=== PATIENT | female | born 1955 | race Two or more races ===

== ENCOUNTER 2023-02-05 21:11 | Emergency (ER) | payer MEDICARE, MEDICAID ==
[~2023-02-05] VITALS: Ht 139.7 cm; Wt 70.3 kg
[2023-02-06] MEDS ORDERED: HYDROcodone-ACET 10/325MG TAB PO ONE ×2 (00:30→00:45)
[2023-02-06] MEDS ORDERED: HYDR-4902 PO (01:01)
[2023-02-06 02:03] VITALS: BP 162/87
== END 2023-02-06 02:05 | disposition home or self-care (01) ==
LOC: ER 21:16
DX: S02.2XXA Fracture of nasal bones, initial encounter for closed fracture (principal); S00.83XA Contusion of other part of head, initial encounter; E66.01 Morbid (severe) obesity due to excess calories; Z68.36 Body mass index [BMI] 36.0-36.9, adult; Y04.2XXA Assault by strike against or bumped into by another person, initial encounter; Y93.89 Activity, other specified; Y92.89 Other specified places as the place of occurrence of the external cause; Y99.8 Other external cause status
CPT/HCPCS: 70450; 70486; 71045; 72125

== ENCOUNTER 2024-08-04 07:38 | Day surgery (SDC) | payer MEDICARE, MEDICAID ==
[~2024-08-04] VITALS: Ht 139.7 cm; Wt 65.3 kg
[~2024-08-04 07:38] MED LIST: CHOL200064 PO; HYDROmorphone HCL 2 MG/ML VL/or syr IV PRN; ICOS1CAP OR; KETOROLAC TROMETH 30 MG/ML 1ML VIAL IV ONE; LORA-1121 PO; METOCLOPRAMIDE HCL 5MG/ml INJ 2ml VIAL IV ONE; MORPHINE SULFATE INJ 2 MG/ml SYRG IV PRN; OMEP-448 PO; OXYB5TAB14 PO; PHEN-1325 PO; SIMV10TA20 PO; TOLT2CAP PO; VENL150T34 PO
[2024-08-04] MEDS ORDERED: ONDANSETRON HCL 4 MG/2 ML VIAL ONE (07:47)
[2024-08-04] MEDS ORDERED: LIDOCAINE 1% INJ PF 5ML AMP ONE (07:47)
[2024-08-04] MEDS ORDERED: fentaNYL CITRATE 100 MCG/2 ML VL ONE (07:47)
[2024-08-04] MEDS ORDERED: PROPOFOL 10 MG/ML 20 ML IV ONE (07:47)
[2024-08-04] MEDS ORDERED: SODIUM CHLORIDE LOCK 10 ML ONE (07:47)
[2024-08-04] MEDS ORDERED: KETAMINE 50mg/ML 10ml Vial 10 ML ONE (07:47)
[2024-08-04] MEDS ORDERED: MIDAZOLAM HCL 2MG/2ML 2ml VIAL (1mg/ml) ONE (07:47)
[2024-08-04] MEDS: LIDOCAINE VISCOUS 2% 15ML UD ONE (08:25)
--- NOTE | 2024-08-04 08:38 | DVHHP2 ---
GI H&P Pre-Op Assessment Date: 08/04/24 Chief complaint: Epigastric pain HPI: per clinic note Past medical history: per clinic note Past surgical history: per clinic note Family history: per clinic note Physical exam: General: NAD, AAOX3 HEENT: PERRL, no scleral icterus, normal hearing, gums without lesions or b leeding, oropharynx clear without erythema or exudate. Neck: Supple without enlargement of the thyroid, or lymphadenopathy. Chest: Normal size and shape, no tenderness, lung lazo clear to auscultation and percussion, nonlabored breathing. Heart: RRR, no murmur Abdomen: non-distended, no tenderness to palpation, +BS, no hepatosplenomegaly Extremities: no edema Neurological: CN II-XII intact, sensation intact in all extremities, 5+ strength in all extremities Skin: No rashes, No jaundice Assessment: -Epigastric pain Plan: - EGD - Risks (bleeding, infection, perforation, reaction to sedation medications and cardiopulmonary arrest) and benefit of the procedure were explained to patient. Patient agrees to undergo the procedure. ERIC LONG MD Aug 04, 2024 08:38
[2024-08-04 08:39] VITALS: RESP 9; TEMP 97.3; O2SAT 97
--- NOTE | 2024-08-04 08:39 | DVHOP2 ---
Operative Report DATE OF OPERATION: 08/04/24 PROCEDURE: Upper Endoscopy. PREOPERATIVE INDICATION: The patient is a 68 -year-old female undergoing endoscopy for epigastric pain. POSTOPERATIVE DIAGNOSES: 1. Residual food in the stomach PROCEDURE PERFORMED BY: Miah Lima SCOPE: Olympus videoendoscope. ASA CLASS: 2 PREOPERATIVE MEDICATIONS: MAC with Dr Leary PROCEDURE IN DETAIL: After obtaining an informed consent, the patient was placed on left lateral decubitus position. The patient was then sedated with the above medications. A bite block was placed between her teeth. The en doscope was then passed through the oropharynx, into the esophagus, and through the stomach and pylorus up to the second and third part of the duodenum. The duodenal was normal appearance. There was a lot of residual food in the stomach. The GE junction was normal in appearance at 30 cm. The esophagus was normal in appearance. The endoscope was then withdrawn. The patient tolerated the procedure well without difficulty. COMPLICATIONS : None SPECIMENS: None DISPOSITION: D/C to home PLAN: 1. Patient will be instructed on low residual diet. Patient should eat small meals. MIAH LIMA MD Aug 04, 2024 08:39
--- NOTE | 2024-08-04 08:40 | DVHDS2 ---
Physician Discharge Progress N Final Diagnosis: Gastroparesis Operations or Procedures: Operations or Procedures EGD Condition on Discharge: Good Disposition: Home Discharge Instructions: Diet: Regular Activity: No Restrictions, As Tolerated Medications: Resume previous home medications Follow Up Care: Discharge Statement: "Patient was advised to return to the ER or call 911 if any headaches, d izziness, shortness of breath, chest pain, abdominal pain, bleeding, fevers, or worsening of medical condition. Patient was counseled about treatment plan, medications, possible side effects, patientverbalized understanding. All questions were answered to the best of my ability. This discharge took greater then 30 minutes in planning, reviewing documentation, counseling the patient, and discussing with other team members." ERIC LONG MD Aug 04, 2024 08:40
[2024-08-04 09:02] VITALS: BP 117/60; PULSE 86; RESP 12; O2SAT 97
== END 2024-08-04 09:19 | disposition home or self-care (01) ==
LOC: GI 07:38
PROVIDERS: ATTEND Internal Medicine Gastroenterology
DX: R10.13 Epigastric pain (principal); K31.89 Other diseases of stomach and duodenum; K44.9 Diaphragmatic hernia without obstruction or gangrene; K21.9 Gastro-esophageal reflux disease without esophagitis; E78.5 Hyperlipidemia, unspecified; F32.A Depression, unspecified; E66.9 Obesity, unspecified; Z68.33 Body mass index [BMI] 33.0-33.9, adult; Z98.890 Other specified postprocedural states; Z88.6 Allergy status to analgesic agent
CPT/HCPCS: 43235; J2250; J2405; J2704; J3010; J7030

== ENCOUNTER 2024-12-23 20:03 | Emergency (ER) | payer MEDICARE, MEDICAID ==
[~2024-12-23] VITALS: Ht 149.9 cm; Wt 65.6 kg
[~2024-12-23 20:03] MED LIST changes: -HYDROmorphone HCL 2 MG/ML VL/or syr IV PRN; -KETOROLAC TROMETH 30 MG/ML 1ML VIAL IV ONE; -METOCLOPRAMIDE HCL 5MG/ml INJ 2ml VIAL IV ONE; -MORPHINE SULFATE INJ 2 MG/ml SYRG IV PRN
--- NOTE | 2024-12-23 20:59 | ED.PDOC ---
GI ASSESSMENT HPI Comments 69-year-old female who came to ER for abdominal pain. Patient states she has been having sharp, epigastric abdominal pain for the past 2 days, associated bouts of nausea and vomiting. Denies any diarrhea. Denies any history of abdominal surgeries. Patient also complaining of left knee and left foot pain. Chief Complaint: Abdominal pain Time Seen by MD: 20:55 Reviewed Notes: Nurses Notes Allergies: Coded Allergies: Ibuprofen (Verified Allergy, Severe, 12/23/24) Home Meds Active Scripts Gabapentin (Once-Daily) (Gabapentin) 300 Mg Tab, 300 MG PO Q6HP PRN, #60 TAB Prov:FIOR JEAN MD 12/23/24 Famotidine (PEPCID TABLET) 20 Mg Tb, 1 TAB PO BID PRN, #60 TAB 5 Refills Prov:FIOR JEAN MD 12/23/24 Ondansetron HCl (Ondansetron Hydrochloride) 8 Mg Tab, 8 MG PO Q6HP PRN, #30 TAB Prov:FIOR JEAN MD 12/23/24 Reported Medications Tolterodine Tartrate (Detrol La) 2 Mg Cap, 2 MG PO DAILY, CAP 08/03/24 Oxybutynin Chloride (Oxybutynin Chloride) 5 Mg Tab, 5 MG PO DAILY, TAB 08/03/24 Omeprazole (Omeprazole Dr) 40 Mg Cap, 40 MG PO BID, CAP 08/03/24 Phentermine Hcl (Adipex-P) 37.5 Mg Tab, 37.5 MG PO DAILY, TAB 24 Lorazepam (ATIVAN TABLET) 0.5 Mg Tb, 0.5 MG PO DAILY, TAB 08/03/24 Cholecalciferol (D3 2000) 2,000 Unit Cap, 2000 UNIT PO DAILY, CAP 08/03/24 Simvastatin (Simvastatin) 10 Mg Tab, 10 MG PO DAILY, TAB 08/03/24 Epa Ethyl Annette (VASCEPA) 1 Gm Cap, 1 GM OR QID, CAP 08/03/24 Venlafaxine Hcl (Venlafaxine Hcl Er) 150 Mg Tab, 150 MG PO DAILY, TAB 08/03/24 Information Source: Patient Mode of Arrival: Ambulatory Timing: Hours Duration: Since onset Prehospital treatment: None Quality: Aching, Sharp Vomitus: Watery Stool: Normal Severity: Moderate Recent: Possible spoiled food Recent Hx of: None Pain Location: Epigastric Modifying Factors: Nothing Associated sign and symptoms: Nausea, Vomiting, Abdominal Pain Past Medical History PAST MEDICAL HISTORY: Denies Surgical History: Denies all surgeries 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 History Family History Family History: Reviewed,noncontributory to illness, No family hx of Cancer, No family hx of DM, No family hx of Heart radha, No family hx of HTN, No family hx ofKidney radha, No family hx of Liver radha, No family hx of Lung radha, No family hx of Stroke Social History Smoker: Non-Smoker Alcohol: Denies ETOH Use Drugs: Denies Drug Use Lives In: Home Constitutional: denies: chills, diaphoresis, fatigue, fever, malaise, sweats, weakness, others EENTM: denies: blurred vision, double vision, ear bleeding, ear discharge, ear drainage, ear pain, ear ringing, eye pain, eye redness, hearing loss, mouth pain, mouth swelling, nasal discharge, nose bleeding, nose congestion, nose pain, photophobia, tearing, throat pain, throat swelling, voice changes, others Respiratory: denies: cough, hemoptysis, orthopnea, SOB at rest, shortness of breath, SOB with excertion, stridor, wheezing, others Cardiovascular: denies: chest pain, dizzy spells, diaphoresis, Dyspnea on exertion, edema, irregular heart beat, left arm pain, lightheadedness, palpitations, PND, syncope, others Gastrointestinal: reports: abdominal pain, nausea, vomiting; denies: abdomen distended, blood streaked bowels, constipated, diarrhea, dysphagia, difficulty swallowing, hematemesis, melena, poor appetite, poor fluid intake, rectal bleeding, rectal pain, others Genitourinary: denies: abnormal vagina bleeding, burning, dyspareunia, dysuria, flank pain, frequency, hematuria, incontinence, pain, , vagina discharge, urgency, others Neurological: denies: dizziness, fainting, headache, left sided numbness, left sided weakness, numbness, paresthesia, pre-existing deficit, right sided numbness, right sided weakness, seizure, speech problems, tingling, tremors, weakness, others Musculoskeletal: denies: back pain, gout, joint pain, joint swelling, muscle pain, muscle stiffness, neck pain, others Integumetry: denies: bruises, change in color, change in hair/nails, dryness, laceration, lesions, lumps, rash, wounds, others Allergic/Immunocompromised: denies: Difficulty Healing, Frequent Infections, Hives, Itching, others Hematologic/Lymphatic: denies: anemia, blood clots, easy bleeding, easy bruising, swollen glands, others Endocrine: denies: excessive hunger, excessive sweating, excessive thirst, excessive urination, flushing, intolerance to cold, intolerance to heat, unexplained weight gain, unexplained weight loss, others Psychiatric: denies: anxiety, bipolar disorder, depression, hopeless, panic disorder, schizophrenia, sleepless, suicidal, others Physical Exam General Appearance: No Apparent Distress, Normal HEENT: Normal ENT Inspection, Pharynx Normal, TMs Normal Neck: Full Range of Motion, Non-Tender, Normal, Normal Inspection Respiratory: Chest Non-Tender, Lungs Clear, No Accessory Muscle Use, No Respiratory Distress, Normal Breath Sounds Cardiovascular: No Edema, No JVD, No Murmur, No Gallop, Normal Peripheral Pulses, Regular Rate/Rhythm Breast Exam: Deferred Gastrointestinal: No Organomegaly, Non Tender, No Pulsatile Mass, Normal Bowel Sounds, Soft Genitalia: Deferred Pelvic: Deferred Rectal: Deferred Extremities: No calf tenderness, Normal capillary refill, Normal inspection, Normal range of motion, Non-tender, No pedal edema Musculoskeletal : Apperance: Normal Neurologic: Alert, rn patient care II-XII nml as Tested, No Motor Deficits, Normal Affect, Normal Mood, No Sensory Deficits Cerebellar Function: Normal Reflexes: Normal Skin: Dry, Normal Color, Warm Lymphatic: No Adenopathy Was a procedure done? Was a procedure done?: No GI differential Dx Differential Diagnosis: Cholecystitis, Diverticular disease, Gastritis/PUD, Gastroenteritis, Pancreatitis, UTI, Urolithiasis X-Ray, Labs, Meds, VS Vital Signs Date Time Temp Pulse Resp B/P (MAP) Pulse Ox O2 Delivery O2 Flow Rate FiO2 12/23/24 20:57 98.0 102 18 126/87 (100) 95 98.0 Lab Test 12/23/24 20:38 12/23/24 00:00 Range/Units White Blood Count 8.8 4.4-10.8 10^3/uL Red Blood Count 4.14 4.0-5.20 10^6/uL Hemoglobin 13.3 12.2-16.2 g/dL Hematocrit 40.0 36.0-46.0 % Mean Corpuscular Volume 96.6 80.0-100.0 fL Mean Corpuscular Hemoglobin 32.2 H 28.0-32.0 pg Mean Corpuscular Hemoglobin Concent 33.3 32.0-36.0 g/dL Red Cell Distribution Width 14.8 H 11.8-14.3 % Platelet Count 315 140-450 10^3/uL Mean Platelet Volume 6.6 L 6.9-10.8 fL Neutrophils (%) (Auto) 54.4 37.0-80.0 % Lymphocytes (%) (Auto) 33.5 10.0-50.0 % Monocytes (%) (Auto) 8.1 0.0-12.0 % Eosinophils (%) (Auto) 2.8 0.0-7.0 % Basophils (%) (Auto) 1.2 0.0-2.0 % Neutrophils # (Auto) 4.8 1.6-8.6 10 ^3/uL Lymphocytes # (Auto) 2.9 0.4-5.4 10 ^3/uL Monocytes # (Auto) 0.7 0-1.3 10 ^3/uL Eosinophils # (Auto) 0.2 0-0.8 10 ^3/uL Basophils # (Auto) 0.1 0-0.2 10 ^3/uL Nucleated Red Blood Cells 0.1 % Sodium Level 141 136-145 mmol/L Potassium Level 3.3 L 3.5-5.1 mmol/L Chloride Level 107 98-107 mmol/L Carbon Dioxide Level 24 20-31 mmol/L Anion Gap 10 5-15 Blood Urea Nitrogen 18 9-23 mg/dL Creatinine 0.63 0.550-1.02 mg/dL Glomerular Filtration Rate Calc 96 >90 mL/min BUN/Creatinine Ratio 28.6 H 10.0-20.0 Serum Glucose 131 H 74-106 mg/dL Calcium Level 9.7 8.7-10.4 mg/dL Total Bilirubin 0.2 0.2-1.0 mg/dL Aspartate Amino Transferase (AST) 31 13-40 U/L Alanine Aminotransferase (ALT) 41 H 7-40 U/L Alkaline Phosphatase 114 46-116 U/L Total Protein 7.1 5.7-8.2 g/dL Albumin 4.6 3.2-4.8 g/dL Lipase 33 12-53 U/L Urine Color Light-yellow Yellow Urine Clarity Turbid H Clear Urine pH 6.0 5.0-9.0 Urine Specific [place] 1.028 1.001-1.035 Urine Protein Trace H Negative Urine Ketones Negative Negative Urine Blood Negative Negative /uL Urine Nitrite 2+ H Negative Urine Bilirubin Negative Negative Urine Urobilinogen Normal Negative mg/dL Urine Leukocyte Esterase Negative Negative /uL Urine RBC 31 0 - 4 /hpf Urine Microscopic WBC 11 H 0-5 /HPF Urine Squamous Epithelial Cells Few <5 /hpf Urine Calcium Oxalate Crystals Few None Seen Urine Bacteria Few H None Seen /hpf Urine Mucus Few None Seen Urine Glucose Normal Normal mg/dL Time of 1ST Reevaluation: 20:51 Reevaluation 1ST: Unchanged Patient Education/Counseling: Diagnosis, Treatment Family Education/Counseling: No Family Present Departure 1 Departure Time of Disposition: 00:38 Impression: Primary Impression: Upper abdominal pain Additional Impression: Nausea and vomiting Disposition: 01 HOME / SELF CARE / HOMELESS Condition: Stable e-Prescriptions Gabapentin (Once-Daily) (Gabapentin) 300 Mg Tab 300 MG PO Q6HP PRN, #60 TAB Prov: FIOR JEAN MD 12/23/24 Famotidine (PEPCID TABLET) 20 Mg Tb 1 TAB PO BID PRN, #60 TAB 5 Refills Prov: FIOR JEAN MD 12/23/24 Ondansetron HCl (Ondansetron Hydrochloride) 8 Mg Tab 8 MG PO Q6HP PRN, #30 TAB Prov: FIOR JEAN MD 12/23/24 Discharged With: Self Critical Care Note Critical Care Time?: No Stability Stability form required: No Heart Score Heart Score: Heart Score Response (Comments) Value History N/A 0 EKG N/A 0 Age N/A 0 Risk Factors N/A 0 Troponin N/A 0 Total 0 I personally scribed for FIOR JEAN MD ([email or web address]) on 12/23/24 at 20:59. Electronically submitted by Garfield Lehman ([email or web address]). FIOR JEAN MD Dec 23, 2024 20:59
[2024-12-23 21:08] LABS: Basophils # (auto) 0.1 10 ^3/uL (0-0.2); Basophils % (auto) 1.2 % (0.0-2.0); Eosinophils # (auto) 0.2 10 ^3/uL (0-0.8); Eosinophils % (auto) 2.8 % (0.0-7.0); Hemoglobin 13.3 g/dL (12.2-16.2); Lymphocytes # (auto) 2.9 10 ^3/uL (0.4-5.4); Lymphocytes % (auto) 33.5 % (10.0-50.0); Mean Corpuscular Hemoglobin 32.2 pg (28.0-32.0); Mean Corpuscular Hgb Conc. 33.3 g/dL (32.0-36.0); Mean Corpuscular Volume 96.6 fL (80.0-100.0); Monocytes # (auto) 0.7 10 ^3/uL (0-1.3); Monocytes % (auto) 8.1 % (0.0-12.0); Neutrophils # (auto) 4.8 10 ^3/uL (1.6-8.6); Neutrophils % (auto) 54.4 % (37.0-80.0); Nucleated Red Blood Cells % 0.1 %; Platelet Count (auto) 315 10^3/uL (140-450); Red Blood Cells 4.14 10^6/uL (4.0-5.20); Red Cell Distribution Width 14.8 % (11.8-14.3); White Blood Cell 8.8 10^3/uL (4.4-10.8)
--- NOTE | 2024-12-23 21:15 | DVH ---
Exam: CT CT AB PEL WO CON-NO ORAL OR IV History: abd pain / flank pain Comparison Study: None available at time of dictation. TECHNIQUE: Multidetector CT of the abdomen was performed from lung bases to pubic symphysis. Imaging was performed without IV contrast. Axial, coronal and sagittal multiplanar reformats were obtained fr om the axial data set by the technologist. Radiation Dose Information: CT Dose: CTDI volume is 0.58 mGy. Dose-length product is 570.52 mGy*cm FINDINGS: Evaluation of solid organs is limited due to lack of intravenous contrast use. Findings: Lung Bases: No acute or significant lung base finding. Normal heart size. No pleural or pericardial effusion. Liver: The liver is normal in size. No focal lesions. Gallbladder and Biliary Tree: Unremarkable Spleen: Unremarkable Pancreas: The pancreas is grossly normal in appearance. Adrenal Glands: Unremarkable Kidneys: Kidneys are grossly normal without calculi or hydronephrosis. Bladder: Grossly unremarkable for degree of distention. Bowel: The stomach is grossly normal in appearance. Small bowel and colon are normal in caliber and d istribution. The appendix is not visualized; however, no secondary findings of acute appendicitis id entified. Ascites: Absent Lymphadenopathy: No mesenteric, retroperitoneal or periportal lymphadenopathy. Abdominal Wall and Mesentery: Unremarkable. Vasculature: The visualized abdominal aorta is normal in size and caliber. Evaluation of abdominal a nd pelvic vessels is limited due to lack of intravenous contrast. Pelvic Organs: Unremarkable Musculoskeletal: No aggressive focal bony lesions, acute fractures or dislocation. Soft tissues: Unremarkable IMPRESSION: 1. No nephrolithiasis or hydronephrosis 2. No ureteral calculi or bladder calculi. Radiation optimization: All CT scans at this facility use at least one of these dose optimization marvin hniques: automated exposure control mA and/or kV adjustment per patient size (includes targeted exam s where dose is matched to clinical indication) or iterative reconstruction. HS:Y
[2024-12-23 21:20] LABS: Albumin 4.6 g/dL (3.2-4.8); Alkaline Phosphatase 114 U/L (46-116); Anion Gap 10 (5-15); Aspartate Aminotransferase 31 U/L (13-40); BUN/Creatinine Ratio 28.6 (10.0-20.0); Blood Urea Nitrogen 18 mg/dL (9-23); Calcium 9.7 mg/dL (8.7-10.4); Carbon Dioxide 24 mmol/L (20-31); Lipase 33 U/L (12-53); Sodium 141 mmol/L (136-145); Total Protein 7.1 g/dL (5.7-8.2)
[2024-12-23 21:21] LABS: Bilirubin, Total 0.2 mg/dL (0.2-1.0)
[2024-12-23 21:22] LABS: Alanine Aminotransferase 41 U/L (7-40); Chloride 107 mmol/L (98-107); Glucose 131 mg/dL (74-106); Potassium 3.3 mmol/L (3.5-5.1)
[2024-12-23 21:28] LABS: Urine Bacteria FEW /hpf (None Seen); Urine Blood Negative /uL (Negative); Urine Clarity Turbid (Clear); Urine Color Light-Yellow (Yellow); Urine Mucus FEW (None Seen); Urine Protein, UAD TRACE (Negative); Urine Specific Gravity 1.028 (1.001-1.035); Urine Squamous Epithelial Cell FEW /hpf (<5); Urine Urobilinogen Normal (Negative); Urine WBC 11 /HPF (0-5)
[2024-12-23] MEDS ORDERED: GABA300T4 PO (22:11)
[2024-12-23] MEDS ORDERED: ONDA-180 PO (22:11)
[2024-12-23] MEDS ORDERED: FAMO20TA10 PO (22:11)
[2024-12-24 01:15] VITALS: BP 146/77; PULSE 94; RESP 15; TEMP 97.9; O2SAT 96
[2024-12-24] MEDS: ONDANSETRON ODT 4 MG TAB PO ONE (01:20)
[2024-12-24] MEDS: POTASSIUM EFFERVESENT TAB 25 MEQ PO ONE (01:21)
[2024-12-24] MEDS: FAMOTIDINE 20 MG TAB PO ONE (01:21)
== END 2024-12-24 01:38 | disposition home or self-care (01) ==
LOC: ER 20:03
DX: R10.13 Epigastric pain (principal); R11.2 Nausea with vomiting, unspecified; Z88.6 Allergy status to analgesic agent; Z79.899 Other long term (current) drug therapy
CPT/HCPCS: 36415; 74176; 80053; 81001; 83690; 85025; 99284; Q0162

== ENCOUNTER 2024-12-26 10:34 | Emergency (ER) | payer MEDICARE, MEDICAID ==
[~2024-12-26] VITALS: Ht 149.9 cm; Wt 68.1 kg
[~2024-12-26 10:34] MED LIST changes: +FAMO20TA10 PO; +GABA300T4 PO; +ONDA-180 PO
--- NOTE | 2024-12-26 10:57 | ED.PDOC ---
Musculoskeletal HPI Comments 69 y.o female presents to the ED for a chief complaint of left knee swelling and pain radiating down to her foot that started one week ago. Patient reports symptoms have worsened now. Patient is still able to bear full weight on left leg however it is becoming more tender. She denies any erythema to leg, numbness, wounds, fever, chills, or recent trauma/falls. Patient has a history of left knee arthritis, states she needs a knee replacement on the left, depression, anxiety, bladder, and gastritis. Time Seen by MD: 10:50 Reviewed Notes: Nurses Notes, Medications, Allergies Allergies: Coded Allergies: Ibuprofen (Verified Allergy, Severe, 12/23/24) Home Meds Active Scripts Hydrocodone-Acetaminophen (Hydrocodone Bitartrate/AC 5-325 mg) 1 Tab Tab, 1 TAB PO Q6HP PRN, #20 TAB Prov:KIM OLIVEIRA MD 12/26/24 Gabapentin (Once-Daily) (Gabapentin) 300 Mg Tab, 300 MG PO Q6HP PRN, #60 TAB Prov:FIOR JEAN MD 12/23/24 Famotidine (PEPCID TABLET) 20 Mg Tb, 1 TAB PO BID PRN, #60 TAB 5 Refills Prov:FIOR JEAN MD 12/23/24 Ondansetron HCl (Ondansetron Hydrochloride) 8 Mg Tab, 8 MG PO Q6HP PRN, #30 TAB Prov:FIOR JEAN MD 12/23/24 Reported Medications Tolterodine Tartrate (Detrol La) 2 Mg Cap, 2 MG PO DAILY, CAP 08/03/24 Oxybutynin Chloride (Oxybutynin Chloride) 5 Mg Tab, 5 MG PO DAILY, TAB 08/03/24 Omeprazole (Omeprazole Dr) 40 Mg Cap, 40 MG PO BID, CAP 08/03/24 Phentermine Hcl (Adipex-P) 37.5 Mg Tab, 37.5 MG PO DAILY, TAB 08/03/24 Lorazepam (ATIVAN TABLET) 0.5 Mg Tb, 0.5 MG PO DAILY, TAB 08/03/24 Cholecalciferol (D3 2000) 2,000 Unit Cap, 2000 UNIT PO DAILY, CAP 08/03/24 Simvastatin (Simvastatin) 10 Mg Tab, 10 MG PO DAILY, TAB 08/03/24 Epa Ethyl Annette (VASCEPA) 1 Gm Cap, 1 GM OR QID, CAP 08/03/24 Venlafaxine Hcl (Venlafaxine Hcl Er) 150 Mg Tab, 150 MG PO DAILY, TAB 08/03/24 Information Source: Patient Mode of Arrival: Ambulatory Location: Left Extremity Location: Foot, Knee Timing: Weeks (1) Severity: Moderate Able to Move Extremity: Yes Bear Weight: Fully Pain: Moderate Mechanism: None Circumstances: Spontaneous Onset of Symptoms: Spontaneous Symptoms: Swelling, Pain DVT Risk Factors: NONE Associated signs and symptoms: Swelling, Knee pain, Leg pain Past Medical History PAST MEDICAL HISTORY: Anxiety, Depression Past Medical History (Other): bladder, gastritis 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 Family History Family History: Reviewed,noncontributory to illness, No family hx of Cancer, No family hx of DM, No family hx of Heart radha, No family hx of HTN, No family hx of Kidney radha, No family hx of Liver radha, No family hx of Lung radha, No family hx of Stroke Social History Smoker: Non-Smoker Alcohol: Denies ETOH Use Drugs: Denies Drug Use Lives In: Home Constitutional: denies: chills, diaphoresis, fatigue, fever, malaise, sweats, weakness, others EENTM: denies: blurred vision, double vision, ear bleeding, ear discharge, ear drainage, ear pain, ear ringing, eye pain, eye redness, hearing loss, mouth pain, mouth swelling, nasal discharge, nose bleeding, nose congestion, nose pain, photophobia, tearing, throat pain, throat swelling, voice changes, others Respiratory: denies: cough, hemoptysis, orthopnea, SOB at rest, shortness of breath, SOB with excertion, stridor, wheezing, others Cardiovascular: denies: chest pain, dizzy spells, diaphoresis, Dyspnea on exertion, edema, irregular heart beat, left arm pain, lightheadedness, palpitations, PND, syncope, others Gastrointestinal: denies: abdomen distended, abdominal pain, blood streaked bowels, constipated, diarrhea, dysphagia, difficulty swallowing, hematemesis, melena, nausea, poor appetite, poor fluid intake, rectal bleeding, rectal pain, vomiting, others Genitourinary: denies: abnormal vagina bleeding, burning, dyspareunia, dysuria, flank pain, frequency, hematuria, incontinence, pain, , vagina discharge, urgency, others Neurological: denies: dizziness, fainting, headache, left sided numbness, left sided weakness, numbness, paresthesia, pre-existing deficit, right sided numbness, right sided weakness, seizure, speech problems, tingling, tremors, weakness, others Musculoskeletal: reports: others (left leg pain and swelling ); denies: back pain, gout, joint pain, joint swelling, muscle pain, muscle stiffness, neck pain Integumetry: denies: bruises, change in color, change in hair/nails, dryness, laceration, lesions, lumps, rash, wounds, others Allergic/Immunocompromised: denies: Difficulty Healing, Frequent Infections, Hives, Itching, others Hematologic/Lymphatic: denies: anemia, blood clots, easy bleeding, easy bruising, swollen glands, others Endocrine: denies: excessive hunger, excessive sweating, excessive thirst, excessive urination, flushing, intolerance to cold, intolerance to heat, unexplained weight gain, unexplained weight loss, others Psychiatric: denies: anxiety, bipolar disorder, depression, hopeless, panic disorder, schizophrenia, sleepless, suicidal, others All Other Systems: Reviewed and Negative Physical Exam General Appearance: No Apparent Distress HEENT: Other (Pupils and face symmetric. Moist mucous membranes.) Neck: Full Range of Motion, Normal Inspection Respiratory: Lungs Clear, No Accessory Muscle Use, No Respiratory Distress, Normal Breath Sounds Cardiovascular: No JVD, Regular Rate/Rhythm Breast Exam: Deferred Gastrointestinal: Non Tender, Soft Genitalia: Deferred Pelvic: Deferred Rectal: Deferred Extremities: Normal range of motion, Swelling, Tender, Other (Left knee, leg and foot mild diffuse soft tissue swelling and tenderness. No discoloration.) Neurologic: Alert (Oriented x4), Normal Affect, Normal Mood, Other (Ambulatory without difficulty.) Cerebellar Function: NOT DONE Reflexes: NOT DONE Skin: Dry, Normal Color, Warm Lymphatic: NOT DONE Was a procedure done? Was a procedure done?: No Differential Diagnosis EXT Differential Diagnosis: Cellulitis, CHF, Deep Vein Thrombosis, Sprain, Gout, Strain, Arthritis, Bursitis X-Ray, Labs, Meds, VS Vital Signs Date Time Temp Pulse Resp B/P (MAP) Pulse Ox O2 Delivery O2 Flow Rate FiO2 12/26/24 10:57 97.7 100 18 141/88 (105) 98 97.7 Lab Test 12/26/24 11:20 Range/Units White Blood Count 6.5 # 4.4-10.8 10^3/uL Red Blood Count 4.02 4.0-5.20 10^6/uL Hemoglobin 12.9 12.2-16.2 g/dL Hematocrit 38.5 36.0-46.0 % Mean Corpuscular Volume 95.9 80.0-100.0 fL Mean Corpuscular Hemoglobin 32.2 H 28.0-32.0 pg Mean Corpuscular Hemoglobin Concent 33.6 32.0-36.0 g/dL Red Cell Distribution Width 14.4 H 11.8-14.3 % Platelet Count 334 140-450 10^3/uL Mean Platelet Volume 6.5 L 6.9-10.8 fL Neutrophils (%) (Auto) 51.4 37.0-80.0 % Lymphocytes (%) (Auto) 36.0 10.0-50.0 % Monocytes (%) (Auto) 7.5 0.0-12.0 % Eosinophils (%) (Auto) 4.1 0.0-7.0 % Basophils (%) (Auto) 1.0 0.0-2.0 % Neutrophils # (Auto) 3.3 1.6-8.6 10 ^3/uL Lymphocytes # (Auto) 2.3 0.4-5.4 10 ^3/uL Monocytes # (Auto) 0.5 0-1.3 10 ^3/uL Eosinophils # (Auto) 0.3 0-0.8 10 ^3/uL Basophils # (Auto) 0.1 0-0.2 10 ^3/uL Nucleated Red Blood Cells 0.1 % Sodium Level 141 136-145 mmol/L Potassium Level 3.8 3.5-5.1 mmol/L Chloride Level 103 98-107 mmol/L Carbon Dioxide Level 29 20-31 mmol/L Anion Gap 9 5-15 Blood Urea Nitrogen 16 9-23 mg/dL Creatinine 0.67 0.550-1.02 mg/dL Glomerular Filtration Rate Calc 95 >90 mL/min BUN/Creatinine Ratio 23.9 H 10.0-20.0 Serum Glucose 91 74-106 mg/dL Calcium Level 10.2 8.7-10.4 mg/dL Troponin I High Sensitivity < 3 L </=34 ng/L B-Type Natriuretic Peptide 34.71 0-100 pg/mL [place] [id number] Ph: [phone] DIAGNOSTIC IMAGING Diagnostic Imaging Report : [id number] Signed PATIENT: RADHA KANG ACCT: [id number] UNIT: [id number] : 1955 LOC: ER ROOM / BED: / AGE / SEX: 69 / F ADM STATUS: REG ER SERVICE 54 ORDERING PHYSICIAN: KIM OLIVEIRA MD PROCEDURE(s): LKNE3 - L KNEE 3V XRAY REASON: L knee pain/swelling ORDER NUMBER(s): [id number], ACCESSION NUMBER(s): [id number] EXAM: XY L KNEE 3V XRAY CLINICAL INDICATION: L knee pain/swelling TECHNIQUE: XY L KNEE 3V XRAY Comparison: None FINDINGS/IMPRESSION: There is no evidence of acute fracture or dislocation. Advacned left knee osteoarthritis. The alignment is anatomical. There is no radiopaque foreign body. ATED BY: AURY BUCIO MD DICTATED DATE/TIME: 12/26/24 1137 SIGNED BY: AURY BUCIO MD SIGNED DATE/TIME: 12/26/24 1137 CC: [place] [id number] Ph: [phone] DIAGNOSTIC IMAGING Diagnostic Imaging Report : [id number] Signed PATIENT: RADHA KANG ACCT: [id number] UNIT: [id number] : 1955 LOC: ER ROOM / BED: / AGE / SEX: 69 / F ADM STATUS: REG ER SERVICE 54 ORDERING PHYSICIAN: KIM OLIVEIRA MD PROCEDURE(s): LLDVT - LT Lower DVT REASON: LLE edema ORDER NUMBER(s): [id number], ACCESSION NUMBER(s): [id number] Left lower extremity venous duplex Clinical History: LLE edema Comparison: None Technique: Duplex Doppler evaluation of the deep venous system of the left lower extremity from the common femoral vein to the popliteal vein including color Doppler and spectral/pulsed waveform analysis was performed. Findings: The common femoral vein demonstrates appropriate compressibility and waveform variability. There is compressibility/patency of the great saphenous vein at the proximal thigh. The femoral vein demonstrates appropriate compressibility and waveform variability. The deep femoral vein demonstrates appropriate compressibility and waveform variability. The popliteal vein demonstrates appropriate compressibility and waveform variability. There is normal compressibility at the tibioperoneal trunk. Impression: No left femoropopliteal venous thrombosis. ATED BY: MIKE BRUCE MD DICTATED DATE/TIME: 12/26/24 114 SIGNED BY: MIKE BRUCE MD SIGNED DATE/TIME: 12/26/24 114 CC: X-Ray, Labs, Meds, VS Comment 69-year-old female with history of left knee arthritis complaining of left knee, leg and foot swelling and pain Vitals remarkable for BP 141/88 Exam remarkable for left knee, leg and foot mild diffuse soft tissue swelling a nd tenderness Rhythm strip independently interpreted by me: Sinus rhythm, rate 100, no ectopy. Left knee x-rays show advanced osteoarthritis, no fracture or dislocation Left lower extremity ultrasound negative for DVT CBC, basic metabolic panel, troponin and BNP unremarkable Patient treated with the following in the ED: Hartman 5/325 mg p.o. On re-evaluation, patient states pain has improved. Vitals were stable. Patient is ambulatory without difficulty. The left lower extremity is neurovascularly intact. Patient appears stable for discharge with close outpatient follow-up with an orthopedist. Rx Hartman Time of 1ST Reevaluation: 11:26 Reevaluation 1ST: Unchanged Patient Education/Counseling: Diagnosis, Treatment, Prognosis Family Education/Counseling: No Family Present Departure 1 Departure Time of Disposition: 12:13 Impression: Primary Impression: Arthritis of knee, left Additional Impression: Leg edema, left Disposition: 01 HOME / SELF CARE / HOMELESS Condition: Stable Referrals Refer to Dr. Bucio, Orthopedics. Referrals: Orthopedics Additional Instructions: Your blood tests were unremarkable. Your x-ray showed advanced osteoarthritis of your left knee. Your ultrasound did not show any blood clots and was otherwise unremarkable. I have prescribed medication for pain. Consider wearing compression stockings elevating your left leg whenever possible to reduce the swelling. Follow-up with your orthopedist in 1-2 days. Alter natively, follow-up directly with Dr. Bucio for further evaluation of your pain. e-Prescriptions Hydrocodone-Acetaminophen (Hydrocodone Bitartrate/AC 5-325 mg) 1 Tab Tab 1 TAB PO Q6HP PRN, #20 TAB Prov: KIM OLIVEIRA MD 12/26/24 Discharged With: Relative Critical Care Note Critical Care Time?: No Stability Stability form required: No I personally scribed for KIM OLIVEIRA MD ([place]) on 12/26/24 at 10:57. Electronically submitted by Maribel Juarez ([facility]). I personally scribed for KIM OLIVEIRA MD ([place]) on 12/26/24 at 11:39. Electronically submitted by Maribel Juarez ([facility]). I personally scribed for KIM OLIVEIRA MD ([place]) on 12/26/24 at 12:01. Electronically submitted by Maribel Juarez ([facility]). KIM OLIVEIRA MD Dec 26, 2024 10:57
--- NOTE | 2024-12-26 11:39 | DVH ---
EXAM: XY L KNEE 3V XRAY CLINICAL INDICATION: L knee pain/swelling TECHNIQUE: XY L KNEE 3V XRAY Comparison: None FINDINGS/IMPRESSION: There is no evidence of acute fracture or dislocation. Advacned left knee osteoarthritis. The alignment is anatomical. There is no radiopaque foreign body.
[2024-12-26 11:42] LABS: Basophils # (auto) 0.1 10 ^3/uL (0-0.2); Eosinophils # (auto) 0.3 10 ^3/uL (0-0.8); Eosinophils % (auto) 4.1 % (0.0-7.0); Hematocrit 38.5 % (36.0-46.0); Hemoglobin 12.9 g/dL (12.2-16.2); Lymphocytes # (auto) 2.3 10 ^3/uL (0.4-5.4); Mean Corpuscular Hemoglobin 32.2 pg (28.0-32.0); Mean Corpuscular Hgb Conc. 33.6 g/dL (32.0-36.0); Mean Corpuscular Volume 95.9 fL (80.0-100.0); Monocytes # (auto) 0.5 10 ^3/uL (0-1.3); Monocytes % (auto) 7.5 % (0.0-12.0); Neutrophils # (auto) 3.3 10 ^3/uL (1.6-8.6); Neutrophils % (auto) 51.4 % (37.0-80.0); Nucleated Red Blood Cells % 0.1 %; Platelet Count (auto) 334 10^3/uL (140-450); Red Blood Cells 4.02 10^6/uL (4.0-5.20); Red Cell Distribution Width 14.4 % (11.8-14.3); White Blood Cell 6.5 10^3/uL (4.4-10.8)
--- NOTE | 2024-12-26 11:46 | DVH ---
Left lower extremity venous duplex Clinical History: LLE edema Comparison: None Technique: Duplex Doppler evaluation of the deep venous system of the left lower extremity from the common femor al vein to the popliteal vein including color Doppler and spectral/pulsed waveform analysis was perfo rmed. Findings: The common femoral vein demonstrates appropriate compressibility and waveform variability. There is compressibility/patency of the great saphenous vein at the proximal thigh. The femoral vein demonstrates appropriate compressibility and waveform variability. The deep femoral vein demonstrates appropriate compressibility and waveform variability. The popliteal vein demonstrates appropriate compressibility and waveform variability. There is normal compressibility at the tibioperoneal trunk. Impression: No left femoropopliteal venous thrombosis.
[2024-12-26 11:52] LABS: Chloride 103 mmol/L (98-107); Potassium 3.8 mmol/L (3.5-5.1); Sodium 141 mmol/L (136-145)
[2024-12-26 11:53] LABS: Anion Gap 9 (5-15); Calcium 10.2 mg/dL (8.7-10.4); Carbon Dioxide 29 mmol/L (20-31)
[2024-12-26 11:58] LABS: BUN/Creatinine Ratio 23.9 (10.0-20.0); Blood Urea Nitrogen 16 mg/dL (9-23); Glucose 91 mg/dL (74-106)
[2024-12-26] MEDS ORDERED: HYDR-4902 PO (12:15)
[2024-12-26] MEDS: HYDROcodone-ACET 5/325MG TAB PO ONE (12:38)
[2024-12-26 12:53] VITALS: BP 139/87; PULSE 90; RESP 18; TEMP 97.9; O2SAT 99
== END 2024-12-26 12:55 | disposition home or self-care (01) ==
LOC: ER 10:34
DX: M17.12 Unilateral primary osteoarthritis, left knee (principal); R60.0 Localized edema; F41.9 Anxiety disorder, unspecified; F32.A Depression, unspecified; Z88.6 Allergy status to analgesic agent; Z79.899 Other long term (current) drug therapy
CPT/HCPCS: 36415; 73562; 80048; 83880; 84484; 85025; 93971

== ENCOUNTER 2025-02-08 18:41 | Emergency (ER) | payer OTHER, MEDICAID ==
[~2025-02-08] VITALS: Ht 149.9 cm; Wt 67.0 kg
[~2025-02-08 18:41] MED LIST changes: +HYDR-4902 PO
[2025-02-08 19:01] VITALS: RESP 18; TEMP 98.2; O2SAT 96
--- NOTE | 2025-02-08 19:29 | ED.PDOC ---
Musculoskeletal HPI Comments 69 year old female presents to ER with complaints of left ankle pain x 3 days. Patient states she started experiencing 10/10 unprovoked pain/swelling to left ankle/left foot 3 days ago that radiates towards her left calf. Denies use of medications for current symptoms and presents to ER ambulatory, with steady gait, in no distress. Denies numbness/tingling, trauma/falls, fever, further skin changes, shortness of breath or any further symptoms/complaints Chief Complaint: Lower Extremity Time Seen by MD: 18:44 Primary Care Provider: KEYONNA Reviewed Notes: Nurses Notes, Medications, Allergies Allergies: Coded Allergies: Ibuprofen (Verified Allergy, Severe, 12/23/24) Home Meds Active Scripts Hydrocodone-Acetaminophen (Hydrocodone Bitartrate/AC 5-325 mg) 1 Tab Tab, 1 TAB PO Q6HP PRN, #20 TAB Prov:KIM OLIVEIRA MD 12/26/24 Gabapentin (Once-Daily) (Gabapentin) 300 Mg Tab, 300 MG PO Q6HP PRN, #60 TAB Prov:FIOR JEAN MD 12/23/24 Famotidine (PEPCID TABLET) 20 Mg Tb, 1 TAB PO BID PRN, #60 TAB 5 Refills Prov:FIOR JEAN MD 12/23/24 Ondansetron HCl (Ondansetron Hydrochloride) 8 Mg Tab, 8 MG PO Q6HP PRN, #30 TAB Prov:FIOR JEAN MD 12/23/24 Reported Medications Tolterodine Tartrate (Detrol La) 2 Mg Cap, 2 MG PO DAILY, CAP 08/03/24 Oxybutynin Chloride (Oxybutynin Chloride) 5 Mg Tab, 5 MG PO DAILY, TAB 08/03/24 Omeprazole (Omeprazole Dr) 40 Mg Cap, 40 MG PO BID, CAP 08/03/24 Phentermine Hcl (Adipex-P) 37.5 Mg Tab, 37.5 MG PO DAILY, TAB 08/03/24 Lorazepam (ATIVAN TABLET) 0.5 Mg Tb, 0.5 MG PO DAILY, TAB 08/03/24 Cholecalciferol (D3 2000) 2,000 Unit Cap, 2000 UNIT PO DAILY, CAP 08/03/24 Simvastatin (Simvastatin) 10 Mg Tab, 10 MG PO DAILY, TAB 08/03/24 Epa Ethyl Annette (VASCEPA) 1 Gm Cap, 1 GM OR QID, CAP 08/03/24 Venlafaxine Hcl (Venlafaxine Hcl Er) 150 Mg Tab, 150 MG PO DAILY, TAB 08/03/24 Information Source: Patient Mode of Arrival: Ambulatory Past Medical History PAST MEDICAL HISTORY: Anxiety, Depression, GERD 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 Family History Family History: Unknown Social History Smoker: Non-Smoker Alcohol: Denies ETOH Use Drugs: Denies Drug Use Lives In: Home Constitutional: denies: chills, diaphoresis, fatigue, fever, malaise, sweats, weakness, others EENTM: denies: blurred vision, double vision, ear bleeding, ear discharge, ear drainage, ear pain, ear ringing, eye pain, eye redness, hearing loss, mouth pain, mouth swelling, nasal discharge, nose bleeding, nose congestion, nose pain, photophobia, tearing, throat pain, throat swelling, voice changes, others Respiratory: denies: cough, hemoptysis, orthopnea, SOB at rest, shortness of breath, SOB with excertion, stridor, wheezing, others Cardiovascular: denies: chest pain, dizzy spells, diaphoresis, Dyspnea on exertion, edema, irregular heart beat, left arm pain, lightheadedness, palpitations, PND, syncope, others Gastrointestinal: denies: abdomen distended, abdominal pain, blood streaked bowels, constipated, diarrhea, dysphagia, difficulty swallowing, hematemesis, melena, nausea, poor appetite, poor fluid intake, rectal bleeding, rectal pain, vomiting, others Genitourinary: denies: abnormal vagina bleeding, burning, dyspareunia, dysuria, flank pain, frequency, hematuria, incontinence, pain, , vagina discharge, urgency, others Neurological: denies: dizziness, fainting, headache, left sided numbness, left sided weakness, numbness, paresthesia, pre-existing deficit, right sided numbness, right sided weakness, seizure, speech problems, tingling, tremors, weakness, others Musculoskeletal: reports: others (As stated in HPI) Integumetry: denies: bruises, change in color, change in hair/nails, dryness, laceration, lesions, lumps, rash, wounds, others Allergic/Immunocompromised: denies: Difficulty Healing, Frequent Infections, Hives, Itching, others Hematologic/Lymphatic: denies: anemia, blood clots, easy bleeding, easy bruising, swollen glands, others Endocrine: denies: excessive hunger, excessive sweating, excessive thirst, excessive urination, flushing, intolerance to cold, intolerance to heat, unexplained weight gain, unexplained weight loss, others Psychiatric: denies: anxiety, bipolar disorder, depression, hopeless, panic disorder, schizophrenia, sleepless, suicidal, others Physical Exam General Appearance: No Apparent Distress HEENT: Normal ENT Inspection, PERRL/EOMI, Pharynx Normal, TMs Normal Neck: Full Range of Motion, Non-Tender, Normal Respiratory: Chest Non-Tender, Lungs Clear, No Accessory Muscle Use, No Respiratory Distress, Normal Breath Sounds Cardiovascular: No Murmur, No Gallop, Regular Rate/Rhythm Breast Exam: Deferred Gastrointestinal: Non Tender, No Pulsatile Mass, Soft Genitalia: Deferred Pelvic: Deferred Rectal: Deferred Extremities: Calf tenderness (TTP to left lower calf noted without erythema/skin changes noted), Normal capillary refill, Normal range of motion Musculoskeletal : Extremity Location: Ankle (Slight TTP to left medial malleolus noted without skin changes. TTP also noted to left calcaneus without skin changes to left foot noted. Pulses intact. Steady noted) Neurologic: Alert, scratch finisher II-XII nml as Tested, No Motor Deficits, Normal Affect, Normal Mood, No Sensory Deficits Cerebellar Function: Normal Reflexes: Normal Skin: Dry, Normal Color, Warm Peripheral Pulses: 2+ femoral (R), 2+ femoral (L), 2+ dorsalis pedis (R), 2+ dorsalis pedis (L), 2+ Radial (R), 2+ Radial (L), 2+ Brachial (R), 2+ Brachial (L) Lymphatic: No Adenopathy Was a procedure done? Was a procedure done?: No Sedation Sedation?: No Differential Diagnosis EXT Differential Diagnosis: Fracture, Dislocation, Neurovascular injury X-Ray, Labs, Meds, VS Vital Signs Date Time Temp Pulse Resp B/P (MAP) Pulse Ox O2 Delivery O2 Flow Rate FiO2 02/08/25 19:40 80 156/80 (105) 02/08/25 19:01 98.2 96 18 123/100 (108) 96 98.2 02/08/25 19:01 96 18 96 Room Air 02/08/25 19:01 98.2 96 18 123/100 (968) 96 98.2 Current Medications Medications (Trade) Dose Ordered Sig/Ajith Route Start Time Stop Time Status Last Admin Acetaminophen/ Hydrocodone Bitart ([place] 5/325MG Tab) 1 tab ONCE ONCE PO 02/08/25 19:30 02/08/25 19:58 DC 02/08/25 19:43 Ketorolac Tromethamine (Toradol Injection) 60 mg ONCE ONCE IM 02/08/25 20:00 02/08/25 20:01 DC 02/08/25 20:01 PATIENT: RADHA KANGT: [id number] UNIT: [id number] : 1955 LOC: ER ROOM / BED: / AGE / SEX: 69 / F ADM STATUS: REG ER SERVICE 01 ORDERING PHYSICIAN: JULIETA RED PROCEDURE(s): LLDVT - LT Lower DVT REASON: left leg pain ORDER NUMBER(s): [id number], ACCESSION NUMBER(s): [id number] CLINICAL HISTORY: left leg pain TECHNIQUE: Color and duplex doppler imaging of the left lower extremity veins was performed. Vessel compression if possible was also performed. WID: COMPARISON: US LT LOWER DVT on DOS: 12/26/24 FINDINGS: Left common femoral vein: Normal compressibility and flow. Left femoral vein: Normal compressibility and flow. Left popliteal vein: Normal compressibility and flow. Proximal calf veins are normally compressible. IMPRESSION: NO SONOGRAPHIC EVIDENCE FOR DEEP VENOUS THROMBOSIS IN THE LEFT LOWER EXTREMITY VEINS. ATED BY: REBECCA MARY MD DICTATED DATE/TIME: 02/08/252018 SIGNED BY: REBECCA MARY MD SIGNED DATE/TIME: 02/08/252018 CC: PATIENT: RADHA KANGT: [id number] UNIT: [id number] : 1955 LOC: ER ROOM / BED: / AGE / SEX: 69 / F ADM STATUS: REG ER SERVICE 18 ORDERING PHYSICIAN: JULIETA RED PROCEDURE(s): LFOOT - L FOOT 3 VIEW XRAY REASON: left foot pain ORDER NUMBER(s): [id number], ACCESSION NUMBER(s): [id number] CLINICAL INDICATION: left foot pain TECHNIQUE: 3 radiographic views of the left foot were obtained. Comparison: None FINDINGS/IMPRESSION: There is no evidence of acute fracture or dislocation. The visualized joint space is well maintained. Small plantar calcaneal bony spur. The alignment is anatomical. There is no radiopaque foreign body. ATED BY: CHIO CALLE DO DICTATED DATE/TIME: 02/08/251956 SIGNED BY: CHIO CALLE DO SIGNED DATE/TIME: 02/08/251956 CC: PATIENT: RADHA KANGCCT: [id number] UNIT: [id number] : 1955 LOC: ER ROOM / BED: / AGE / SEX: 69 / F ADM STATUS: REG ER SERVICE 18 ORDERING PHYSICIAN: JULIETA RED PROCEDURE(s): LANKL - L ANKLE 3 VIEW REASON: left ankle pain ORDER NUMBER(s): [id number], ACCESSION NUMBER(s): [id number] CLINICAL INDICATION: left ankle pain TECHNIQUE: 3 radiographic views of the left ankle were obtained. Comparison: None FINDINGS/IMPRESSION: There is no evidence of acute fracture or dislocation. Small plantar calcaneal bony spur. The visualized joint space is well maintained. The alignment is anatomical. There is no radiopaque foreign body. ATED BY: CHIO CALLE DO DICTATED DATE/TIME: 02/08/251955 SIGNED BY: CHIO CALLE DO SIGNED DATE/TIME: 02/08/251955 CC: Left lower DVT ultrasound reviewed Left ankle x-ray reviewed Left foot x-ray reviewed Toradol 60 mg IM ordered Patient had improvement in symptoms and in no distress prior to discharge Advised to follow up with PCP in 1-2 days Patient verbalized understanding and agreeable with current plan of care Advised to return to ER immediately if symptoms worsen Time of 1ST Reevaluation: 19:20 Reevaluation 1ST: N/A Patient Education/Counseling: Diagnosis, Treatment, Prognosis, Need For Follow Up Family Education/Counseling: No Family Present Departure 1 Departure Time of Disposition: 20:22 Impression: Primary Impression: Calcaneal spur, left Additional Impressions: Strain of left calf muscle Left ankle pain Qualified Codes: M25.572 - Pain in left ankle and joints of left foot Disposition: HOME / SELF CARE / HOMELESS Condition: Stable e-Prescriptions Acetaminophen (Acetaminophen) 500 Mg Tab 500 MG PO Q4HPRN, #30 TAB 0 Refills Prov: JULIETA RED 02/08/25 Discharged With: Friend Critical Care Note Critical Care Time?: No Stability Stability form required: No Heart Score Heart Score: Heart Score Response (Comments) Value History N/A 0 EKG N/A 0 Age N/A 0 Risk Factors N/A 0 Troponin N/A 0 Total 0 JULIETA RED Feb 08, 2025 19:29
[2025-02-08 19:40] VITALS: BP 156/80; PULSE 80
[2025-02-08] MEDS: HYDROcodone-ACET 5/325MG TAB PO ONE (19:43)
--- NOTE | 2025-02-08 19:58 | DVH ---
CLINICAL INDICATION: left ankle pain TECHNIQUE: 3 radiographic views of the left ankle were obtained. Comparison: None FINDINGS/IMPRESSION: There is no evidence of acute fracture or dislocation. Small plantar calcaneal bony spur. The visualized joint space is well maintained. The alignment is anatomical. There is no radiopaque foreign body.
--- NOTE | 2025-02-08 20:00 | DVH ---
CLINICAL INDICATION: left foot pain TECHNIQUE: 3 radiographic views of the left foot were obtained. Comparison: None FINDINGS/IMPRESSION: There is no evidence of acute fracture or dislocation. The visualized joint space is well maintained. Small plantar calcaneal bony spur. The alignment is anatomical. There is no radiopaque foreign body.
[2025-02-08] MEDS: KETOROLAC TROMETH 60MG/2ML VIAL IM ONE (20:01)
--- NOTE | 2025-02-08 20:21 | DVH ---
CLINICAL HISTORY: left leg pain TECHNIQUE: Color and duplex doppler imaging of the left lower extremity veins was performed. Vessel c ompression if possible was also performed. WID: COMPARISON: US LT LOWER DVT on DOS: 12/26/24 FINDINGS: Left common femoral vein: Normal compressibility and flow. Left femoral vein: Normal compressibility and flow. Left popliteal vein: Normal compressibility and flow. Proximal calf veins are normally compressible. IMPRESSION: NO SONOGRAPHIC EVIDENCE FOR DEEP VENOUS THROMBOSIS IN THE LEFT LOWER EXTREMITY VEINS.
[2025-02-08] MEDS ORDERED: ACET500T58 PO (20:27)
== END 2025-02-08 21:02 | disposition home or self-care (01) ==
LOC: ER 18:49
DX: S86.812A Strain of other muscle(s) and tendon(s) at lower leg level, left leg, initial encounter (principal); M77.32 Calcaneal spur, left foot; F32.A Depression, unspecified; F41.9 Anxiety disorder, unspecified; K21.9 Gastro-esophageal reflux disease without esophagitis; Z79.899 Other long term (current) drug therapy; Z98.890 Other specified postprocedural states; Z88.6 Allergy status to analgesic agent; X58.XXXA Exposure to other specified factors, initial encounter; Y93.89 Activity, other specified; Y92.89 Other specified places as the place of occurrence of the external cause; Y99.8 Other external cause status
CPT/HCPCS: 73610; 73630; 93971; 96372; 99285; J1885

== ENCOUNTER 2025-04-08 14:54 | Emergency (ER) | payer MEDICARE, MEDICAID ==
[~2025-04-08] VITALS: Ht 149.9 cm; Wt 65.8 kg
[~2025-04-08 14:54] MED LIST changes: +ACET500T58 PO
--- NOTE | 2025-04-08 15:42 | ED.PDOC ---
OSCAR CRAWFORD Comments 69 year old female presents to the ED with a chief complaint of generalized body pain onset 1 week. Patient states she began experiencing generalized body pain, fatigue, dysuria, frequency and incontinence for the past week. She tried to schedule appointment with PCP, next appointment was for July 2025. Patient was told she was pre-diabetic, is concerned she is diabetic. PMHx HLD, anxiety, depression, GERD. Denies headache, dizziness, nausea, vomiting, diarrhea, chest pain, hematuria. No other symptoms or modifying factors present at this time. Chief Complaint: Body Pain Time Seen by MD: 15:25 Primary Care Provider: KEYONNA Reviewed notes: Medications, Allergies Allergies: Coded Allergies: Ibuprofen (Verified Allergy, Severe, 12/23/24) Home Meds Active Scripts Acetaminophen (Acetaminophen) 500 Mg Tab, 500 MG PO Q4HPRN, #30 TAB 0 Refills Prov:JULIETA RED 02/08/25 Hydrocodone-Acetaminophen (Hydrocodone Bitartrate/AC 5-325 mg) 1 Tab Tab, 1 TAB PO Q6HP PRN, #20 TAB Prov:KIM OLIVEIRA MD 12/26/24 Gabapentin (Once-Daily) (Gabapentin) 300 Mg Tab, 300 MG PO Q6HP PRN, #60 TAB Prov:FIOR JEAN MD 12/23/24 Famotidine (PEPCID TABLET) 20 Mg Tb, 1 TAB PO BID PRN, #60 TAB 5 Refills Prov:FIOR JEAN MD 12/23/24 Ondansetron HCl (Ondansetron Hydrochloride) 8 Mg Tab, 8 MG PO Q6HP PRN, #30 TAB Prov:FIOR JEAN MD 12/23/24 Reported Medications Tolterodine Tartrate (Detrol La) 2 Mg Cap, 2 MG PO DAILY, CAP 08/03/24 Oxybutynin Chloride (Oxybutynin Chloride) 5 Mg Tab, 5 MG PO DAILY, TAB 08/03/24 Omeprazole (Omeprazole Dr) 40 Mg Cap, 40 MG PO BID, CAP 08/03/24 Phentermine Hcl (Adipex-P) 37.5 Mg Tab, 37.5 MG PO DAILY, TAB 08/03/24 Lorazepam (ATIVAN TABLET) 0.5 Mg Tb, 0.5 MG PO DAILY, TAB 08/03/24 Cholecalciferol (D3 2000) 2,000 Unit Cap, 2000 UNIT PO DAILY, CAP 08/03/24 Simvastatin (Simvastatin) 10 Mg Tab, 10 MG PO DAILY, TAB 08/03/24 Epa Ethyl Annette (VASCEPA) 1 Gm Cap, 1 GM OR QID, CAP 08/03/24 Venlafaxine Hcl (Venlafaxine Hcl Er) 150 Mg Tab, 150 MG PO DAILY, TAB 08/03/24 Information Source: Patient Mode of Arrival: Ambulatory Severity: Moderate Timing: Weeks Duration: Since onset Prehospital treatment: None Onset: Spontaneous Symptoms: Dysuria, Urgency History of: UTI Location: None Modifying factors: None associated signs and symptoms: Dysuria, Frequency Past Medical History PAST MEDICAL HISTORY: Anxiety, Depression, GERD, High Lipids Surgical History: [employer] History: 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 Family History Family History: Unknown Social History Smoker: Non-Smoker Alcohol: Denies ETOH Use Drugs: Denies Drug Use Lives In: Home Constitutional: reports: fatigue, others (generalized body pain); denies: chills, diaphoresis, fever, malaise, sweats, weakness EENTM: denies: blurred vision, double vision, ear bleeding, ear discharge, ear drainage, ear pain, ear ringing, eye pain, eye redness, hearing loss, mouth pain, mouth swelling, nasal discharge, nose bleeding, nose congestion, nose pain, photophobia, tearing, throat pain, throat swelling, voice changes, others Respiratory: denies: cough, hemoptysis, orthopnea, SOB at rest, shortness of breath, SOB with excertion, stridor, wheezing, others Cardiovascular: denies: chest pain, dizzy spells, diaphoresis, Dyspnea on exertion, edema, irregular heart beat, left arm pain, lightheadedness, palpitations, PND, syncope, others Gastrointestinal: denies: abdomen distended, abdominal pain, blood streaked bowels, constipated, diarrhea, dysphagia, difficulty swallowing, hematemesis, melena, nausea, poor appetite, poor fluid intake, rectal bleeding, rectal pain, vomiting, others Genitourinary: reports: dysuria, frequency, incontinence; denies: abnormal vagina bleeding, burning, dyspareunia, flank pain, hematuria, pain, , vagina discharge, urgency, others Neurological: denies: dizziness, fainting, headache, left sided numbness, left sided weakness, numbness, paresthesia, pre-existing deficit, right sided numbness, right sided weakness, seizure, speech problems, tingling, tremors, weakness, others Musculoskeletal: denies: back pain, gout, joint pain, joint swelling, muscle pain, muscle stiffness, neck pain, others Integumetry: denies: bruises, change in color, change in hair/nails, dryness, laceration, lesions, lumps, rash, wounds, others Allergic/Immunocompromised: denies: Difficulty Healing, Frequent Infections, Hives, Itching, others Hematologic/Lymphatic: denies: anemia, blood clots, easy bleeding, easy bruising, swollen glands, others Endocrine: denies: excessive hunger, excessive sweating, excessive thirst, excessive urination, flushing, intolerance to cold, intolerance to heat, unexplained weight gain, unexplained weight loss, others Psychiatric: denies: anxiety, bipolar disorder, depression, hopeless, panic disorder, schizophrenia, sleepless, suicidal, others All Other Systems: Reviewed and Negative Physical Exam General Appearance: Moderate Distress, Normal HEENT: Normal ENT Inspection, Pharynx Normal, TMs Normal Neck: Full Range of Motion, Non-Tender, Normal, Normal Inspection Respiratory: Chest Non-Tender, Lungs Clear, No Accessory Muscle Use, No Respiratory Distress, Normal Breath Sounds Cardiovascular: No Edema, No JVD, No Murmur, No Gallop, Normal Peripheral Pulses, Regular Rate/Rhythm Breast Exam: Deferred Gastrointestinal: No Organomegaly, Non Tender, No Pulsatile Mass, Normal Bowel Sounds, Soft Genitalia: Deferred Pelvic: Deferred Rectal: Deferred Extremities: No calf tenderness, Normal capillary refill, Normal inspection, Normal range of motion, Non-tender, No pedal edema Musculoskeletal : Apperance: Normal Neurologic: Alert, wire roller II-XII nml as Tested, No Motor Deficits, Normal Affect, Normal Mood, No Sensory Deficits Cerebellar Function: Normal Reflexes: Normal Skin: Dry, Normal Color, Warm Peripheral Pulses: 3+ Radial (R), 3+ Radial (L) Lymphatic: No Adenopathy Was a procedure done? Was a procedure done?: No Differential Diagnosis Kidney stone (Female): Musculoskeletal pain, Urinary obstruction, Urolithiasis X-Ray, Labs, Meds, VS Vital Signs Date Time Temp Pulse Resp B/P (MAP) Pulse Ox O2 Delivery O2 Flow Rate FiO2 04/08/25 16:32 105 16 98 Room Air 04/08/25 16:32 98.5 105 16 133/76 (95) 98 98.5 04/08/25 14:56 97.9 110 18 136/63 96 97.9 Lab Test 04/08/25 15:58 04/08/25 15:12 Range/Units White Blood Count 9.2 4.4-10.8 10^3/uL Red Blood Count 4.09 4.0-5.20 10^6/uL Hemoglobin 13.4 12.2-16.2 g/dL Hematocrit 38.9 36.0-46.0 % Mean Corpuscular Volume 94.9 80.0-100.0 fL Mean Corpuscular Hemoglobin 32.6 H 28.0-32.0 pg Mean Corpuscular Hemoglobin Concent 34.4 32.0-36.0 g/dL Red Cell Distribution Width 14.1 11.8-14.3 % Platelet Count 347 140-450 10^3/uL Mean Platelet Volume 7.0 6.9-10.8 fL Neutrophils (%) (Auto) 56.7 37.0-80.0 % Lymphocytes (%) (Auto) 31.2 10.0-50.0 % Monocytes (%) (Auto) 8.6 0.0-12.0 % Eosinophils (%) (Auto) 2.3 0.0-7.0 % Basophils (%) (Auto) 1.2 0.0-2.0 % Neutrophils # (Auto) 5.2 1.6-8.6 10 ^3/uL Lymphocytes # (Auto) 2.9 0.4-5.4 10 ^3/uL Monocytes # (Auto) 0.8 0-1.3 10 ^3/uL Eosinophils # (Auto) 0.2 0-0.8 10 ^3/uL Basophils # (Auto) 0.1 0-0.2 10 ^3/uL Nucleated Red Blood Cells 0.1 % Sodium Level 143 136-145 mmol/L Potassium Level 3.4 L 3.5-5.1 mmol/L Chloride Level 106 98-107 mmol/L Carbon Dioxide Level 26 20-31 mmol/L Anion Gap 11 5-15 Blood Urea Nitrogen 9 9-23 mg/dL Creatinine 0.63 0.550-1.02 mg/dL Glomerular Filtration Rate Calc 96 >90 mL/min BUN/Creatinine Ratio 14.3 10.0-20.0 Serum Glucose 122 H 74-106 mg/dL Calcium Level 9.5 8.7-10.4 mg/dL Urine Color Light-yellow Yellow Urine Clarity Clear Clear Urine pH 6.5 5.0-9.0 Urine Specific [place] 1.007 1.001-1.035 Urine Protein Negative Negative Urine Ketones Negative Negative Urine Blood Negative Negative /uL Urine Nitrite Negative Negative Urine Bilirubin Negative Negative Urine Urobilinogen Normal Negative mg/dL Urine Leukocyte Esterase Negative Negative /uL Urine Glucose Normal Normal mg/dL Current Medications Medications (Trade) Dose Ordered Sig/Ajith Route Start Time Stop Time Status Last Admin Sodium Chloride 1,000 ml @ 1,000 mls/hr Q1H ONCE IVB 04/08/25 16:00 04/08/25 16:59 DC 04/08/25 16:56 Acetaminophen/ Hydrocodone Bitart ([place] 5/325MG Tab) 1 tab ONCE ONCE PO 04/08/25 16:30 04/08/25 16:31 DC 04/08/25 16:39 Potassium Bicarbonate (Klor-Con/Ef) 25 meq ONCE ONCE PO 04/08/25 16:45 04/08/25 16:46 DC 04/08/25 17:02 Patient alert. Complaining of generalized body pain. Vitals stable. Answering questions. She does state that she has been urinating frequently. Possible hyperglycemia. Tachycardia. She was given [place]. Potassium is low. Was given potassium. Explained to the patient. Continue monitoring. Was told to follow up with her primary care physician. Was told to come back if there is any problem. Time of 1ST Reevaluation: 15:55 Reevaluation 1ST: Unchanged Patient Education/Counseling: Diagnosis, Treatment, Prognosis Family Education/Counseling: No Family Present SEPSIS Sepsis Screen Date sepsis recognized/suspect: Apr 08, 2025 Time Sepsis recognized/suspect: 1457 Recent Procedure: No On Antibiotic Therapy: No Respiratory Rate >20: No Heart Rate >90: Yes Temp<36 C (96.8 F) or >38.3 C: No SBP <90 or MAP <65 mmHG: No New Acute Mental Status Change: No Is the patient on CPAP, BIPAP,: No Physician Orders L Foot 2 View Xray (04/08/25 17:24) Vital Signs Date Time Temp Pulse Resp B/P (MAP) Pulse Ox O2 Delivery O2 Flow Rate FiO2 04/08/25 16:32 105 16 98 Room Air 04/08/25 16:32 98.5 105 16 133/76 (95) 98 98.5 04/08/25 14:56 97.9 110 18 136/63 96 97.9 Laboratory Tests Test 04/08/25 15:58 White Blood Count 9.2 10^3/uL (4.4-10.8) Medications Medications Dose Ordered Sig/Ajith Route Start Time Stop Time Status Last Admin Dose Admin Acetaminophen/ Hydrocodone Bitart 1 tab ONCE ONCE PO 04/08/25 16:30 04/08/25 16:31 DC 04/08/25 16:39 Potassium Bicarbonate 25 meq ONCE ONCE PO 04/08/25 16:45 04/08/25 16:46 DC 04/08/25 17:02 Sodium Chloride 1,000 ml @ 1,000 mls/hr Q1H ONCE IVB 04/08/25 16:00 04/08/25 16:59 DC 04/08/25 16:56 Departure 1 Departure Time of Disposition: 16:39 Impression: Primary Impression: Hypokalemia Additional Impression: Hyperglycemia Disposition: 30 STILL A PATIENT Condition: Good Discharged With: Self Critical Care Note Critical Care Time?: No Stability Stability form required: No Heart Score Heart Score: Heart Score Response (Comments) Value History N/A 0 EKG N/A 0 Age N/A 0 Risk Factors N/A 0 Troponin N/A 0 Total 0 I personally scribed for TAYA FORD MD ([email or web address]) on 04/08/25 at 15:42. Electronically submitted by Dimple Schmitz ([email or web address]). TAYA FORD MD Apr 08, 2025 15:42
[2025-04-08 16:26] LABS: Hematocrit 38.9 % (36.0-46.0); Hemoglobin 13.4 g/dL (12.2-16.2); Mean Corpuscular Hemoglobin 32.6 pg (28.0-32.0); Mean Corpuscular Volume 94.9 fL (80.0-100.0); Nucleated Red Blood Cells % 0.1 %
[2025-04-08 16:28] LABS: Urine Protein, UAD Negative (Negative)
[2025-04-08 16:31] LABS: Chloride 106 mmol/L (98-107); Sodium 143 mmol/L (136-145)
[2025-04-08 16:32] LABS: Anion Gap 11 (5-15); Carbon Dioxide 26 mmol/L (20-31)
[2025-04-08 16:33] LABS: Calcium 9.5 mg/dL (8.7-10.4)
[2025-04-08 16:38] LABS: BUN/Creatinine Ratio 14.3 (10.0-20.0); Blood Urea Nitrogen 9 mg/dL (9-23); Glucose 122 mg/dL (74-106); Potassium 3.4 mmol/L (3.5-5.1)
[2025-04-08] MEDS: HYDROcodone-ACET 5/325MG TAB PO ONE (16:39)
[2025-04-08] MEDS: SODIUM CHLORIDE 0.9% 1,000 ML IVB ONE (16:56)
[2025-04-08] MEDS: POTASSIUM EFFERVESENT TAB 25 MEQ PO ONE (17:02)
--- NOTE | 2025-04-08 18:06 | DVH ---
CLINICAL INDICATION: pain TECHNIQUE: 1 radiographic views of the left foot were obtained. Comparison: XY L ANKLE 3 VIEW on DOS: 02/08/25, XY L FOOT 3 VIEW XRAY on DOS: 02/08/25 FINDINGS/IMPRESSION: NORMAL BONY ALIGNMENT NO FRACTURE OR DISLOCATION NO RADIOPAQUE FOREIGN BODIES
[2025-04-08 18:52] VITALS: BP 145/94; PULSE 95; RESP 16; TEMP 98.6; O2SAT 98
[2025-04-08] MEDS: ACETAMINOPHEN 325 MG TAB PO ONE (20:48)
== END 2025-04-08 21:03 | disposition home or self-care (01) ==
LOC: ER 15:04
DX: E87.6 Hypokalemia (principal); E78.5 Hyperlipidemia, unspecified; M79.18 Myalgia, other site; R30.0 Dysuria; R35.0 Frequency of micturition; F32.A Depression, unspecified; F41.9 Anxiety disorder, unspecified; Z79.899 Other long term (current) drug therapy; Z87.440 Personal history of urinary (tract) infections; Z88.6 Allergy status to analgesic agent
CPT/HCPCS: 36415; 73620; 80048; 81003; 85025; 96360; 99284; J7030